=== PATIENT | male | born 1950 | race Two or more races ===

== ENCOUNTER 2025-07-01 07:52 | Outpatient (AMB) | payer MEDICARE, MEDICAID, SELFPAY ==
--- NOTE | 2025-07-01 08:02 | ORTHONT_ITS ---
Vital signs 07/01/25 08:14 Height 1.7 m Height Method Measured Weight 98.94 kg Weight Measurement Method Standing Scale BMI 34.1 BP 129/77 Blood Pressure Source Automatic Cuff Blood Pressure Location Left Upper Arm Position Sitting Respiration 20 Pulse 56 L Pulse Source Monitor Temp 97.2 F Temp Source Temporal Artery Scan Pulse Oximetry (%) 97 Oxygen Delivery Method Room Air Med/Allergies Allergies & Medications Allergies No Known Allergies Allergy (Verified 07/01/25 08:16) Medication Reconciliation Unobtainable 07/01/25 [History Confirmed 07/01/25] Exam Exam Patient is in no acute distress and is cooperative with the examination today. Breathing is nonlabored. Patient has a normal mood and affect. The patient has a gait that is nonantalgic Bilateral extremities were evaluated and demonstrates sensation intact to light touch. Palpable pedal pulses are present. No significant edema is present. Bilateral hips were examined. The patient has no pain with log roll of the hips. Internal rotation to 30 degrees and external rotation to 30 degrees is painless. Negative FADIR. Right knee was examined today. The right knee is in reasonable alignment. Range of motion from 0-120 degrees. Knee is stable to varus and valgus as well as AP translation with <5mm. Patient has a negative McMurrays. There is no pain with patellofemoral compression and no crepitus noted. The knee is nontender to palpation. Left knee was examined today. The left knee is in neutral alignment. Range of motion from 0-120 degrees. Knee is stable to varus and valgus as well as AP translation with <5mm. Left knee incision is clean dry intact. No effusion is noted Assessment and Plan Problem List (1) History of total left knee replacement: Status: Acute (2) Pain in left knee: Status: Acute Plan: ASSESSMENT AND PLAN 1. Postoperative status following total knee arthroplasty: Symptoms suggest possible nerve involvement due to shooting pain extending down the leg. Swelling is localized to the entire leg rather than just the knee. An x-ray of the knee will be ordered today to rule out any structural abnormalities. ESR and CRP tests will be conducted to exclude the possibility of an infection, even though it is unlikely. Gabapentin will be prescribed to manage the nerve pain. Patient education included discussing the potential benefits of gabapentin for nerve pain relief and the importance of monitoring for side effects such as dizziness or drowsiness. The patient was advised to take the medication as prescribed and to report any adverse effects. Lifestyle modifications such as avoiding activities that exacerbate the pain and swelling were recommended. The patient was encouraged to continue gentle exercises and physical therapy as tolerated to maintain joint mobility and strength. Given that has been several years and we have no x-rays, we are also ordering new x-rays Follow-up: Next available appointment. 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) MA Intake Visit Data Collection New Patient or Established: New Patient (never been to [facility]) Reason for Visit:: LEFT TKA FOLLOW UP Seen by Clinical Staff ONLY (RN/MA): No Loop Machine Operator Required: No PCP or OBGYN visit in last 3 months: Yes Hx Now: No Do You Feel Safe at Home: Yes Authorities Contacted: N/A Questionairres Past Medical History Past Medical History Have you ever been diagnosed with any of the following: Subjective Visit Visit for: new patient and knee Immunization / Flu Flu Vaccine in the Last 12 Months: Yes Flu Vaccine Exclusion Criteria: Already Received History of Present Illness Chief complaint: LEFT KNEE TKA HISTORY OF PRESENT ILLNESS IChandler, have obtained verbal consent from the patient, to be recorded during this encounter which may include, but not limited to, medical history, examination, treatment plans, and relevant health information.? Patient was informed that recording will be read and reviewed by myself before inclusion in the medical chart. The patient is a 74-year-old male who presents for knee pain and swelling. He underwent a total knee replacement surgery in [place] 3 years ago. He reports that his knee pain has been gradually increasing, particularly when he exercises or bends his knee. The pain is accompanied by swelling, which he describes as an electric sensation that radiates down his entire leg. He completed physical therapy for his knee 2 weeks ago, as prescribed by his primary care physician. He also mentions a rash on his leg, which he attributes to wearing a boot. Despite these issues, he notes that his current pain level is less severe than it was prior to the surgery. He received an injection in his back from another physician, which alleviated the swelling and some of the pain, but did not completely eliminate it. He had an ultrasound of his heart 2 months ago, which was normal. PAST SURGICAL HISTORY: Total knee replacement 3 years ago. Pain Pain level (0-10): 0 Ambulatory data Ambulatory device: none Treatments Number of previous injections: 0 Improvement with previous injections: No Number of Physical Therapy sessions: 0 Improvement with PT: No Improvement with NSAIDS: no Review of Systems Review of Systems: All systems negative unless otherwise noted in HPI.
[2025-07-01 08:14] VITALS: BP 129/77; PULSE 56; RESP 20; TEMP 36.2; O2SAT 97; BMI 34.1
--- NOTE | 2025-07-01 08:19 | XR_ITS ---
Examination: Bilateral knees AP single view Left knee PA lateral axial 3 views TECHNIQUE: Bilateral AP knees standing single view Left knee weightbearing flexion PA, weightbearing lateral, axial left knee 3 views total 4 views Date and time: July 01, 2025, 0823 hours INDICATIONS: Left knee swelling beginning 3 months ago, knee replacement 2 years ago. 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 Satisfactory alignment No loosening of the prosthetic components No patellar dislocation IMPRESSION: Total left knee arthroplasty with satisfactory alignment
== END 2025-07-01 08:21 | disposition home or self-care (01) ==
LOC: HODSRG 07:52
PROVIDERS: Supervising Provider Orthopaedic Surgery Adult Reconstructive Orthopaedic Surgery; Visit Provider Orthopaedic Surgery Adult Reconstructive Orthopaedic Surgery
DX: Z96.652 Presence of left artificial knee joint (principal); M25.562 Pain in left knee
CPT/HCPCS: 73564; 99203; G0463

== ENCOUNTER 2025-07-31 08:53 | Outpatient (AMB) | payer MEDICARE, MEDICAID, SELFPAY ==
--- NOTE | 2025-07-31 09:45 | ORTHONT_ITS ---
Vital signs 07/31/25 09:46 Height 1.7 m Height Method Measured Weight 96.19 kg Weight Measurement Method Standing Scale BMI 33.3 BP 128/68 Blood Pressure Source Automatic Cuff Blood Pressure Location Left Upper Arm Position Sitting Respiration 18 Pulse 52 L Pulse Source Monitor Temp 97.0 F Temp Source Temporal Artery Scan Pulse Oximetry (%) 97 Oxygen Delivery Method Room Air Med/Allergies Allergies & Medications Allergies No Known Allergies Allergy (Verified 07/31/25 09:48) Medication Reconciliation Unobtainable 07/01/25 [History Confirmed 07/31/25] Exam Exam Patient is in no acute distress and is cooperative with the examination today. Breathing is nonlabored. Patient has a normal mood and affect. The patient has a gait that is nonantalgic Bilateral extremities were evaluated and demonstrates sensation intact to light touch. Palpable pedal pulses are present. No significant edema is present. Bilateral hips were examined. The patient has no pain with log roll of the hips. Internal rotation to 30 degrees and external rotation to 30 degrees is painless. Negative FADIR. Right knee was examined today. The right knee is in reasonable alignment. Range of motion from 0-120 degrees. Knee is stable to varus and valgus as well as AP translation with <5mm. Patient has a negative McMurrays. There is no pain with patellofemoral compression and no crepitus noted. The knee is nontender to palpation. Left knee was examined today. The left knee is in neutral alignment. Range of motion from 0-120 degrees. Knee is stable to varus and valgus as well as AP translation with <5mm. Left knee incision is clean dry intact. No effusion is noted X-rays demonstrate a cemented total knee replacement in good alignment and position Assessment and Plan Problem List (1) History of total left knee replacement: Status: Acute (2) Pain in left knee: Status: Acute Plan: ASSESSMENT AND PLAN The patient is here for return follow-up. The pain in his knees have went away from the last back injection. We just discussed the back is likely the main source for this. We recommend physical therapy and treatment for his back at this time. We can see him in approximately 1 to 2 years Advanced Care Planning Discussion Advance care planning discussed with:: patient Office Procedures GNS Level of Care Nursing/Assessment Patient Status: Established Patient Nursing Assessment/Reassesment: Medication Reconciliation, Update PMH in EMR and Vital Signs Coordination of Care: Complex Care and Chronic Disease 1-5, Education Complex Pt/Fam, Consent,records obtained, informed consent, Results/Orders obtained and Staff clarify orders Special Needs: Language special needs Established Patient Charge Established Patient Point Assignment: 95 Established Patient Point Charge: EP Level 3 (80-115) MA Intake Visit Data Collection New Patient or Established: New Patient (never been to [facility]) Reason for Visit:: LEFT KNEE IMAGING Seen by Clinical Staff ONLY (RN/MA): No 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 PCP or OBGYN visit in last 3 months: Yes Hx Now: No Do You Feel Safe at Home: Yes Authorities Contacted: N/A Questionairres Past Medical History Past Medical History Have you ever been diagnosed with any of the following: Subjective Visit Visit for: follow up visit and knee Immunization / Flu Flu Vaccine in the Last 12 Months: Yes Flu Vaccine Exclusion Criteria: Already Received History of Present Illness Chief complaint: LEFT KNEE IMAGING HISTORY OF PRESENT ILLNESS IChandler, have obtained verbal consent from the patient, to be recorded during this encounter which may include, but not limited to, medical history, examination, treatment plans, and relevant health information.? Patient was informed that recording will be read and reviewed by myself before inclusion in the medical chart. The patient is a 74-year-old male who presents for knee pain and swelling. He actually had a injection in his back and all the pains in his knees and went away. He was told that he has multiple disc and they are not recommending surgery given the extensive issues he has. We thus discussed that the pain is likely from the back given this fact. We also reviewed x-rays which demonstrate moderate arthritis of the right knee as well as a total knee replacement in good alignment and position Personal History Red flag PMH: none Pain Pain level (0-10): 0 Ambulatory data Ambulatory device: none Treatments Number of previous injections: 0 Improvement with previous injections: No Number of Physical Therapy sessions: 0 Improvement with PT: No Improvement with NSAIDS: no Review of Systems Review of Systems: All systems negative unless otherwise noted in HPI.
[2025-07-31 09:46] VITALS: BP 128/68; PULSE 52; RESP 18; TEMP 36.1; O2SAT 97; BMI 33.3
== END 2025-07-31 10:21 | disposition home or self-care (01) ==
LOC: HODSRG 08:53
PROVIDERS: Supervising Provider Orthopaedic Surgery Adult Reconstructive Orthopaedic Surgery; Visit Provider Orthopaedic Surgery Adult Reconstructive Orthopaedic Surgery
DX: M25.562 Pain in left knee (principal); M25.561 Pain in right knee; Z96.652 Presence of left artificial knee joint
CPT/HCPCS: 99213; G0463